=== PATIENT | male | born 1950 | race Caucasian/White ===

== ENCOUNTER 2018-01-01 14:12 | Emergency (ER) | payer OTHER, SELFPAY ==
[2018-01-01 14:17] VITALS: BP 131/82; PULSE 84; RESP 16; TEMP 36.8; O2SAT 97
--- NOTE | 2018-01-01 14:38 | ED.LOWEXIN ---
HPI - Extremity Injury (Lower) <JNONIE Romero - Last Filed: 01/01/18 22:08> General Chief Complaint: Extremity Injury, Lower Stated Complaint: Swelling in right leg Time Seen by Provider: 01/01/18 14:37 History of Present Illness HPI Narrative: 67-year-old male here for complaint of having pain and swelling to his right lower extremity in the calf region since yesterday he denies any trauma to the area. Reports increased pain with palpation to the area. He reports that he had a recent procedure where he had 2 stents placed to his iliacs 3 days ago. He denies any fevers or chills. He is ambulatory in the emergency room. He reports no complications with catheterization sites. No other concerns or complaints. Related Data Home Medications Medication Instructions Recorded Confirmed aspirin 81 mg PO DAILY 01/01/18 01/01/18 clopidogrel [Plavix] 75 mg PO DAILY 01/01/18 01/01/18 epinephrine [EpiPen] 0.3 ml IM PRN PRN 01/01/18 01/01/18 gabapentin 300 - 600 mg PO BEDTIME 01/01/18 01/01/18 hydrochlorothiazide 25 mg PO DAILY 01/01/18 01/01/18 losartan 100 mg PO DAILY 01/01/18 01/01/18 omega 7-aqw-szv-fish oil [Fish Oil] 1 cap PO DAILY 01/01/18 01/01/18 rosuvastatin [Crestor] 40 mg PO DAILY 01/01/18 01/01/18 Review of Systems <JONNIE Romero - Last Filed: 01/01/18 22:08> Constitutional Denies chills, Denies fever(s), Denies lethargy and Denies weakness Eyes Denies change in vision, Denies eye discharge, Denies irritation and Denies loss of vision ENT Ears, Nose, Mouth, and Throat: Denies change in voice, Denies neck pain and Denies sore throat Cardiovascular Denies chest pain, Denies irregular heart rhythm, Denies lightheadedness, Denies palpitations, Denies dyspnea, Denies dyspnea on exertion and Denies orthopnea Respiratory Denies cough, Denies dyspnea, Denies dyspnea on exertion and Denies wheezing Gastrointestinal Gastrointestinal: Denies abdominal pain, Denies change in bowel habits, Denies diarrhea, Denies nausea and Denies vomiting Genitourinary Denies hematuria, Denies flank pain, Denies urinary incontinence and Denies urinary urgency Musculoskeletal Denies neck pain Integumentary/Breasts Denies pruritus, Denies erythema, Denies rash and Denies wounds Neurologic Denies confusion, Denies loss of vision and Denies weakness Psychiatric Denies anxiety, Denies confusion, Denies depression, Denies homicidal ideation and Denies suicidal ideation Endocrine Denies palpitations Hematologic/Lymphatic Denies easy bruising Allergic/Immunologic Denies wheezing Exam <JONNIE Romero - Last Filed: 01/01/18 22:08> Initial Vital Signs Initial Vital Signs: Vital Signs Temperature 98.3 F 01/01/18 14:17 Pulse Rate 84 01/01/18 14:17 Respiratory Rate 16 01/01/18 14:17 Blood Pressure 131/82 H 01/01/18 14:17 Pulse Oximetry 97 01/01/18 14:17 Const General: cooperative and well developed Nutritional Appearance: well nourished Orientation: alert, awake, oriented x3 and not confused HENND Mouth: oral mucosae normal and moist mucous membranes Eyes Conjunctivae: conjunctivae normal Sclera: sclerae normal Pupils: PERRL EOM: EOM intact bilaterally Resp Effort & Inspection: normal respiratory effort, able to speak in complete sentences, no respiratory distress and no use of accessory muscles Auscultation: clear to auscultation bilaterally, no rales, no rhonchi and no wheezes Cardio Rate: regular rate Rhythm: regular rhythm Heart Sounds: no click, no gallops, no murmurs and no rubs GI Inspection: non-distended Palpation: soft, no hepatosplenomegaly, No guarding, No pulsatile mass and No tender Auscultation: normal bowel sounds Skin General: no rashes or lesions noted, No jaundice and No petechiae Neuro General: alert, oriented x3, gait normal and no focal motor deficits Speech: speech normal Extrem Other: Right lower extremity with no appreciated swelling. Distal sensation is intact. Distal range of motion is intact. Distal pulses are intact. No erythema. No increased temperature. Catheterization sites for iliac stent placement from 3 days ago with some surrounding ecchymosis no swelling no hematomas <Samuel Riojas MD - Last Filed: 01/03/18 07:28> Initial Vital Signs Initial Vital Signs: Vital Signs Temperature 98.3 F 01/01/18 14:17 Pulse Rate 84 01/01/18 14:17 Respiratory Rate 16 01/01/18 14:17 Blood Pressure 131/82 H 01/01/18 14:17 Pulse Oximetry 97 01/01/18 14:17 Course <JONNIE Romero - Last Filed: 01/01/18 22:08> Orders Ordered: ED Orders 01/01/18 14:55 US periph venous low extrem rt Stat 01/01/18 15:38 Complete Blood Count AUTO DIFF Stat Comprehensive Metabolic Panel Stat Vital Signs - 8 hr 01/01/18 14:17 01/01/18 15:21 Temperature 98.3 F 98.0 F Pulse Rate 84 64 Respiratory Rate 16 16 Blood Pressure 131/82 H Blood Pressure [Left Arm] 133/84 H Pulse Oximetry 97 96 <Samuel Riojas MD - Last Filed: 01/03/18 07:28> Orders Ordered: ED Orders 01/01/18 14:55 US periph venous low extrem rt Stat 01/01/18 15:38 Complete Blood Count AUTO DIFF Stat Comprehensive Metabolic Panel Stat Vital Signs - 8 hr 01/01/18 14:17 01/01/18 15:21 Temperature 98.3 F 98.0 F Pulse Rate 84 64 Respiratory Rate 16 16 Blood Pressure 131/82 H Blood Pressure [Left Arm] 133/84 H Pulse Oximetry 97 96 MDM - Extremity Injury (Lower) <JONNIE Romero - Last Filed: 01/01/18 22:08> Lab Data Result diagrams: 01/01/18 15:38 01/01/18 15:38 Lab Results 01/01/18 01/01/18 Range/Units 15:38 15:38 WBC 4.5 (4.5-11.0) X10^3/uL RBC 3.64 L (4.5-5.9) X10^6/uL Hgb 12.0 L (13.5-17.5) g/dL Hct 34.8 L (41-53) % MCV 95.5 (80-100) fL MCH 32.9 (26-34) PG MCHC 34.4 (30-36) % RDW 13.4 (11.6-14.8) % Plt Count 132 L (150-400) X10^3/uL Neut % (Auto) 62.0 (50-75) % Lymph % (Auto) 22.9 L (25-40) % Pickett % (Auto) 13.1 (3-14) % Eos % (Auto) 1.6 L (2-4) % Baso % (Auto) 0.4 (0-2) % Neut # (Auto) 2800 L (6307-2557) /uL Sodium 140 (137-145) mmol/L Potassium 3.9 (3.4-5.1) mmol/L Chloride 100 (98-107) mmol/L Carbon Dioxide 29 (22-32) mmol/L BUN 21 H (9-20) mg/dL Creatinine 0.90 (0.66-1.25) mg/dL Estimated GFR > 60.0 (>60) mL/min BUN/Creatinine Ratio 23.3 H (6-22) Glucose 100 (80-110) mg/dL Calcium 9.8 (8.4-10.2) mg/dL Total Bilirubin 1.6 H (0.2-1.3) mg/dL AST 39 (17-59) IU/L ALT 42 (21-72) IU/L Alkaline Phosphatase 48 (38-126) U/L Total Protein 7.4 (6.3-8.2) g/dL Albumin 4.4 (3.5-5.0) g/dL Globulin 3.0 (1.7-4.1) g/dL Albumin/Globulin Ratio 1.5 (1.0-2.8) Imaging Data Venous US: Radiologist's impression: Signed Patient: Lev Berkowitz MR#: [id number] : 1950 Acct:[id number] Age/Sex: 67 / M Date of Service: 01/01/18 Loc: ED Accession Number: [id number] Procedure: US periph venous low extrem rt Ordering Provider: Ronak Michael PROCEDURE: US PERIPH VENOUS LOW EXTREM RT INDICATIONS: Pain into right calf and behind the knee TECHNIQUE: Real-time imaging, as well as color and pulse Doppler interrogation, were performed of the lower extremity deep veins from the inguinal ligament to the popliteal fossa. COMPARISON: None. FINDINGS: The deep veins are normally compressible, and free of intraluminal thrombus. Color and pulse Doppler demonstrate normal phasic intraluminal flow. There is normal augmentation response to distal compression maneuver. IMPRESSION: No evidence of right lower extremity DVT. Dictated by: Farhad Ashley M.D. on 01/01/2018 at 15:24 Approved by: Farhad Ashley M.D. on 01/01/2018 at 15:24 View Report History [address] [address] Ultrasound Report Signed Patient: Lev Berkowitz MR#: [id number] : 1950 Acct:[id number] Age/Sex: 67 / M Date of Service: 01/01/18 Loc: ED Accession Number: [id number] Procedure: US perip venous low extrem rt Ordering Provider: Ronak Michael PROCEDURE: US PERIPH VENOUS LOW EXTREM RT INDICATIONS: Pain into right calf and behind the knee TECHNIQUE: Real-time imaging, as well as color and pulse Doppler interrogation, were performed of the lower extremity deep veins from the inguinal ligament to the popliteal fossa. COMPARISON: None. FINDINGS: The deep veins are normally compressible, and free of intraluminal thrombus. Color and pulse Doppler demonstrate normal phasic intraluminal flow. There is normal augmentation response to distal compression maneuver. IMPRESSION: No evidence of right lower extremity DVT. Dictated by: Farhad Ashley M.D. on 01/01/2018 at 15:24 Approved by: Farhad Ashley M.D. on 01/01/2018 at 15:24 MDM Narrative Medical decision making narrative: CBC and Chem panel were obtained were unremarkable. Ultrasound of the right lower extremity was negative for DVT. Signs and symptoms presents as muscular pain into the right calf. [id number] Tylenol and/or Motrin as needed for discomfort. Follow up with vascular surgery as scheduled next week. For any worsening symptoms return to the emergency room. <Samuel Riojas MD - Last Filed: 01/03/18 07:28> Lab Data Lab Results 01/01/18 01/01/18 Range/Units 15:38 15:38 WBC 4.5 (4.5-11.0) X10^3/uL RBC 3.64 L (4.5-5.9) X10^6/uL Hgb 12.0 L (13.5-17.5) g/dL Hct 34.8 L (41-53) % MCV 95.5 (80-100) fL MCH 32.9 (26-34) PG MCHC 34.4 (30-36) % RDW 13.4 (11.6-14.8) % Plt Count 132 L (150-400) X10^3/uL Neut % (Auto) 62.0 (50-75) % Lymph % (Auto) 22.9 L (25-40) % Pickett % (Auto) 13.1 (3-14) % Eos % (Auto) 1.6 L (2-4) % Baso % (Auto) 0.4 (0-2) % Neut # (Auto) 2800 L (7369-7160) /uL Sodium 140 (137-145) mmol/L Potassium 3.9 (3.4-5.1) mmol/L Chloride 100 (98-107) mmol/L Carbon Dioxide 29 (22-32) mmol/L BUN 21 H (9-20) mg/dL Creatinine 0.90 (0.66-1.25) mg/dL Estimated GFR > 60.0 (>60) mL/min BUN/Creatinine Ratio 23.3 H (6-22) Glucose 100 (80-110) mg/dL Calcium 9.8 (8.4-10.2) mg/dL Total Bilirubin 1.6 H (0.2-1.3) mg/dL AST 39 (17-59) IU/L ALT 42 (21-72) IU/L Alkaline Phosphatase 48 (38-126) U/L Total Protein 7.4 (6.3-8.2) g/dL Albumin 4.4 (3.5-5.0) g/dL Globulin 3.0 (1.7-4.1) g/dL Albumin/Globulin Ratio 1.5 (1.0-2.8) Discharge Plan Departure Patient Disposition: Home Clinical Impression: Acute pain of right lower extremity Discharge Date/Time: 01/01/18 16:40 Interventions: ED Discharge Assessment Last Done: 01/01/18 16:38 Instructions: DI for Leg Pain Activity Restrictions/Additional Instructions: Ultrasound of the right lower extremity was obtained was negative for any clots. Laboratory results were unremarkable. Signs and symptoms presents as muscular pain into the right calf area. Use [id number] Tylenol or Motrin as needed for any discomfort. For any worsening symptoms return emergency room. Follow up with vascular surgery next week as scheduled. Prescriptions: No Action clopidogrel [Plavix] 75 mg Tablet 75 mg PO DAILY RF: 0 aspirin 81 mg Tablet,Delayed Release (Dr/Ec) 81 mg PO DAILY RF: 0 gabapentin 300 mg Capsule 300 - 600 mg PO BEDTIME RF: 0 hydrochlorothiazide 25 mg Tablet 25 mg PO DAILY RF: 0 epinephrine [EpiPen] 0.3 mg/0.3 mL Auto-Injector 0.3 ml IM PRN PRN (Reason: Allergic Reaction) RF: 0 losartan 100 mg Tablet 100 mg PO DAILY RF: 0 rosuvastatin [Crestor] 40 mg Tablet 40 mg PO DAILY RF: 0 omega 5-ifr-azu-fish oil [Fish Oil] 1,000 mg (120 mg-180 mg) Capsule 1 cap PO DAILY RF: 0 Referrals: [facility] [Provider Group] <Samuel Riojas MD - Last Filed: 01/03/18 07:28> Sign Out Provider Sign Out Attestation: The PA/DESIGN TECH functioned independently for the care of this pt, I was available, but not asked to participate in care. I am unable to determine appropriateness of management without personally examining the pt.
--- NOTE | 2018-01-01 14:55 | DI.US.S_ITS ---
PROCEDURE: US PERIPH VENOUS LOW EXTREM RT INDICATIONS: Pain into right calf and behind the knee TECHNIQUE: Real-time imaging, as well as color and pulse Doppler interrogation, were performed of the lower extremity deep veins from the inguinal ligament to the popliteal fossa. COMPARISON: None. FINDINGS: The deep veins are normally compressible, and free of intraluminal thrombus. Color and pulse Doppler demonstrate normal phasic intraluminal flow. There is normal augmentation response to distal compression maneuver. IMPRESSION: No evidence of right lower extremity DVT. Dictated by: Farhad Ashley M.D. on 01/01/2018 at 15:24 Approved by: Farhad Ashley M.D. on 01/01/2018 at 15:24
[2018-01-01 15:21] VITALS: BP 133/84; PULSE 64; RESP 16; TEMP 36.7; O2SAT 96
[2018-01-01 15:45] LABS: Add Manual Diff / Slide Review NO; Basophils Percent Auto 0.4 % (0-2); Eosinophils Percent Auto 1.6 % (2-4); Hematocrit 34.8 % (41-53); Lymphocytes Percent Auto 22.9 % (25-40); Mean Corpuscular HGB Conc 34.4 % (30-36); Mean Corpuscular Hemoglobin 32.9 PG (26-34); Mean Corpuscular Volume 95.5 fL (80-100); Monocytes Percent Auto 13.1 % (3-14); Neutrophils Absolute Auto 2800 /uL (3000-5900); Platelet Count 132 X10^3/uL (150-400); Red Blood Cell Count 3.64 X10^6/uL (4.5-5.9); Red Cell Distribution Width 13.4 % (11.6-14.8); White Blood Cell Count 4.5 X10^3/uL (4.5-11.0)
[2018-01-01 15:55] LABS: Alanine Aminotransferase 42 IU/L (21-72); Albumin 4.4 g/dL (3.5-5.0); Albumin Globulin Ratio 1.5 (1.0-2.8); Alkaline Phosphatase 48 U/L (38-126); Aspartate Aminotransferase 39 IU/L (17-59); BUN Creatinine Ratio 23.3 (6-22); Bilirubin Total 1.6 mg/dL (0.2-1.3); Blood Urea Nitrogen 21 mg/dL (9-20); Calcium 9.8 mg/dL (8.4-10.2); Carbon Dioxide 29 mmol/L (22-32); Chloride 100 mmol/L (98-107); Estimated Glomerular Filt Rate > 60.0 mL/min (>60); Glucose 100 mg/dL (80-110); HEMOLYSIS < 15 (0-50); Potassium 3.9 mmol/L (3.4-5.1); Sodium 140 mmol/L (137-145); Total Protein 7.4 g/dL (6.3-8.2)
== END 2018-01-01 16:40 | disposition home or self-care (01) ==
PROVIDERS: Emergency Provider Nurse Practitioner Family
DX: M79.604 Pain in right leg (principal)
CPT/HCPCS: 36415; 80053; 85025; 93971; 99282; 99284

== ENCOUNTER → 2020-03-13 09:49 | Outpatient (CLI) | payer OTHER, SELFPAY ==
[2020-03-14 06:46] LABS: COVID19 Sendout Not Detected (Not Detect)
== END ==
PROVIDERS: Visit Provider Nurse Practitioner
DX: Z11.59 Encounter for screening for other viral diseases (principal)
CPT/HCPCS: 87635

== ENCOUNTER → 2024-07-08 14:08 | Outpatient (CLI) | payer MEDICARE, SELFPAY ==
--- NOTE | 2024-07-08 14:12 | DI.RAD.S_ITS ---
PROCEDURE: XR CHEST 2V INDICATIONS: Acute cough TECHNIQUE: 2 views of the chest were acquired. COMPARISON: None. FINDINGS: Surgical changes and devices: Extensive prior spine fixation over the upper and middle thirds of the thoracic spine with an interbody stabilization device centrally positioned.. Lungs and pleura: Lungs are clear. No pleural effusions or pneumothorax. Mediastinum: Mediastinal contours are normal. Heart size is normal. Bones and chest wall: No suspicious bony abnormalities. Soft tissues appear unremarkable. IMPRESSION: Postsurgical changes as discussed at the spine, no sign of pneumonia. Dictated by: Hamilton Vaz M.D. on 07/08/2024 at 14:50 Approved by: Hamilton Vaz M.D. on 07/08/2024 at 14:51
== END ==
LOC: RAD 14:10
PROVIDERS: PCP Internal Medicine; Referring Provider Family Medicine; Visit Provider Family Medicine
DX: R05.1 Acute cough (principal)
CPT/HCPCS: 71046

== ENCOUNTER → 2024-07-14 11:17 | Outpatient (CLI) | payer MEDICARE, OTHER, SELFPAY ==
--- NOTE | 2024-07-14 11:18 | DI.CT.S_ITS ---
PROCEDURE: CT CHEST W CON INDICATIONS: HEMOPTYSIS TECHNIQUE: After the administration of intravenous contrast, 5 mm thick sections acquired from the pulmonary apices to the posterior costophrenic angles. 1 mm axial lung, 5 mm thick coronal and sagittal reformats and 7 mm axial MIP were acquired. For radiation dose reduction, the following was used: automated exposure control, adjustment of mA and/or kV according to patient size. COMPARISON: [facility], CR, XR CHEST 2V, 07/08/2024, 14:21. FINDINGS: Image quality: Diagnostic. Lower Neck: No enlarged lymph nodes. Thyroid: No thyroid nodules which require sonographic follow up, per consensus guidelines. Axillae: No enlarged lymph nodes. Chest Wall: Unremarkable. Bones: Stable prior spine surgery along the upper and middle thirds of the thoracic spine.. Lungs and Pleura: No pneumothorax or pleural effusions. No consolidation or suspicious nodules. There is what appears to be alveolar scarring peripherally and mild bronchitis as indicated by slight peribronchial soft tissue thickening at each lung base, right slightly greater than left. No consolidative pneumonia or pleural effusion is associated. No endobronchial mass lesion is found. Heart: Heart size is normal. No pericardial effusion. Thoracic Vessels: The aorta and pulmonary arteries demonstrate normal size. Mediastinum and Rehana: No enlarged lymph nodes. Esophagus: No wall thickening. No hiatal hernia. Upper Abdomen: Visualized upper abdomen solid organs and bowel loops appear normal. IMPRESSION: No lung mass or endobronchial lesion. Mild chronic appearing alveolar lung scarring and chronic bronchitis as indicated by mild bronchial wall thickening is seen at each lung base, right greater than left. No adenopathy found. Dictated by: Hamilton Vaz M.D. on 07/14/2024 at 12:34 Approved by: Hamilton Vaz M.D. on 07/14/2024 at 12:40
== END ==
PROVIDERS: PCP Internal Medicine; Referring Provider Family Medicine; Visit Provider Family Medicine
DX: J42 Unspecified chronic bronchitis (principal); J98.4 Other disorders of lung; R04.2 Hemoptysis
CPT/HCPCS: 71260; Q9967